=== PATIENT | female | born 1965 | race Caucasian/White ===

== ENCOUNTER → 2018-11-26 | Outpatient (CLI) | payer OTHER ==
[~2018-11-26] MED LIST: ACET500 PO; AMLO10 PO; AMLO5 PO; ASPI81CH PO; ATOR40TA PO; ATOR80 PO; Bactrim Ds Tab1 EACH PO; CILO100 PO; CILO50 PO; CLON.1; CLON.2 PO; CLOP75 PO; CYAN100 PO; Cilostazol50 MG PO; FERR325 PO; FLUO.05TO TOP; Hydrochloroth12.5 MG PO; IBUP600 PO; LEVSOD100 PO; LEVSOD137 PO; LEVSOD50 PO; LEVSOD75 PO; LISI20 PO; MECL25 PO; METO50 PO; METTREX2.5 PO; Omeprazole20 M1 PO; Prednisone20 MG PO; TRAM50 PO; VITAMIN D31000 UNIT PO
[2018-11-26 18:45] LABS: BASOPHILS ABSOLUTE AUTO 0.06 K/mm3 (0.00-0.23); BASOPHILS PERCENT AUTO 1 % (0-2); EOSINOPHILS ABSOLUTE AUTO 0.09 K/mm3 (0.00-0.68); EOSINOPHILS PERCENT AUTO 1 % (0-6); Hematocrit 37.8 % (33.0-51.0); Hemoglobin 11.9 g/dL (11.5-16.0); IMMATURE GRAN ABSOLUTE AUTO 0.02 K/mm3 (0.00-0.10); IMMATURE GRAN PERCENT AUTO 0 % (0-1); LYMPHOCYTES PERCENT AUTO 36 % (21-46); MONOCYTES ABSOLUTE AUTO 0.39 K/mm3 (0.16-1.47); MONOCYTES PERCENT AUTO 6 % (4-13); Mean Corpuscular HGB 33.1 pg (26.0-34.0); Mean Corpuscular HGB Conc 31.5 g/dL (31.5-36.5); Mean Corpuscular Volume 105 fL (80-100); Mean Platelet Volume 10.3 fL (9.1-12.4); NEUTROPHILS ABSOLUTE AUTO 3.97 K/mm3 (1.96-9.15); NEUTROPHILS PERCENT AUTO 56 % (41-73); Platelet Count 255 K/mm3 (150-400); RDW Coefficient Variation 13.8 % (11.7-14.2); RDW Standard Deviation 52.3 fL (35.1-46.3); Red Blood Cell Count 3.59 M/mm3 (3.80-5.20); White Blood Cell Count 7.03 K/mm3 (4.00-11.30)
== END ==
LOC: LAB 18:35 → LAB SHORT 18:35
PROVIDERS: Internal Medicine Rheumatology
DX: L40.50 Arthropathic psoriasis, unspecified (principal)
CPT/HCPCS: 84450; 85025; 85651

== ENCOUNTER 2019-05-25 07:35 | Day surgery (SDC) | payer OTHER ==
[~2019-05-25] VITALS: Ht 167.6 cm; Wt 53.0 kg
[~2019-05-25 07:35] MED LIST changes: +FOLI1 PO; +PROLIA60 MG/1 ML SQ; +VITAMIN D32000 UNI3 PO
--- NOTE | 2019-05-25 14:16 | NUR ---
pt left femoral artery access site started bleeding excessivily. per MD place FemStop to bleeding site. Femstop placed at 80mmHg or pressure, 10mmHg above dystolic bp. Bledding has stopped. pt also medicated with 0.5mg of xanax for anxiety. will continue to monitor.
--- NOTE | 2019-05-25 14:40 | NUR ---
10mmHg OF PRESSURE REMOVED FROM FEMSTOP. PRESSURE CURRENTLY AT 60mmHg. NO BLEEDING OR OOZING AT THIS TIME. PT STATES SHE IS VERY ANXIOUS AND IS INSITING THAT FEMSTOP BE REMOVED COMPLETELY. PT EDUCATED ON IMPORTANCE OF CONTROLLING THE BLEEDING OF THE ARTERY AND HOW THE FEMSTOP IS HELPING. VSS. WILL CONTINUE TO MONITOR SITE AND PTS ANXIETY LEVEL. SISTER, SANDIE, AT BEDSIDE.
--- NOTE | 2019-05-25 16:12 | NUR ---
Pt apears to be resting at this time. Right grion and left foot sites remain stable at this time.
--- NOTE | 2019-05-25 17:49 | NUR ---
DISCHARGE PT AMBULATES TO RESTROOM WITH ONE PERSON ASSIST. NO BLEEDING OR OOZING NOTED. PT DENIES ANY PAIN. VSS. SITE COVERED WITH TEGADERM. NO ADDITIONAL BLEEDING, OOZING OR HEMATOMA NOTED. IV DCD WITH CATH IN TACT. PT AND SISTER STATES UNDERSTANDING OF SITE CARE INSTRUCTIONS AND DISCHARGE INSTRUCTIONS. PT AND SISTER DENY ANY QUESTIONS OR CONCERNS UPON DISCHARGE. PT TO FRONT VIA WHEELCHAIR.
[2019-05-31] MEDS ORDERED: HYDCHL25 PO (15:19)
[2019-05-31] MEDS ORDERED: PROLIA60 MG/1 ML SC (15:20)
[2019-05-31] MEDS ORDERED: Vitamin D2000 UNIT PO (15:20)
[2019-05-31] MEDS ORDERED: SLOW FE142 MG PO (15:20)
[2019-05-31] MEDS ORDERED: OMEPRAZOLE20 MG PO (15:21)
[2019-05-31] MEDS ORDERED: CLOP75 PO (15:21)
[2019-05-31] MEDS ORDERED: Vitamin B-121000 MCG PO (15:21)
[2019-05-31] MEDS ORDERED: ATOR80 PO (15:21)
[2019-05-31] MEDS ORDERED: Catapres0.2 MG PO (15:21)
[2019-05-31] MEDS ORDERED: METTREX2.5 PO (15:22)
[2019-05-31] MEDS ORDERED: Aspir 8181 MG PO (15:22)
[2019-05-31] MEDS ORDERED: ACET500 PO (15:22)
[2019-05-31] MEDS ORDERED: LEVSOD137 PO (15:23)
[2019-05-31] MEDS ORDERED: FOLI1 PO (15:23)
[2019-06-01] MEDS ORDERED: POTA10T (09:00)
== END 2019-05-25 17:40 | disposition home or self-care (01) ==
LOC: MHTC 07:35
DX: I70.213 Atherosclerosis of native arteries of extremities with intermittent claudication, bilateral legs (principal); Z88.5 Allergy status to narcotic agent
CPT/HCPCS: 37221; 37222; 37223; 37224; 75625; 75716; 75774; 76937; 85347; 99152; 99153; C1725; C1769; C1876; C1887; C1894; C2623; J1644; J2060; J2250; J2997; J3010; J7030; Q9967

== ENCOUNTER 2019-06-18 02:08 | Day surgery (SDC) | payer OTHER ==
[~2019-06-18 02:08] MED LIST changes: +Aspir 8181 MG PO; +Catapres0.2 MG PO; +HYDCHL25 PO; +OMEPRAZOLE20 MG PO; +POTA10T; +PROLIA60 MG/1 ML SC; +SLOW FE142 MG PO; +Vitamin B-121000 MCG PO; +Vitamin D2000 UNIT PO
--- NOTE | 2019-06-18 15:09 | NUR ---
LS CLEAR BUT DIM IN RT BASES
[2019-06-18] MEDS ORDERED: ARTHRITIS PAIN650 MG PO (15:21)
== END 2019-06-18 17:16 | disposition home or self-care (01) ==
LOC: ATC 02:08
DX: I12.9 Hypertensive chronic kidney disease with stage 1 through stage 4 chronic kidney disease, or unspecified chronic kidney disease (principal); F17.200 Nicotine dependence, unspecified, uncomplicated; N18.2 Chronic kidney disease, stage 2 (mild); D63.1 Anemia in chronic kidney disease; N25.81 Secondary hyperparathyroidism of renal origin; M81.0 Age-related osteoporosis without current pathological fracture; E55.9 Vitamin D deficiency, unspecified; Z88.5 Allergy status to narcotic agent; Z79.82 Long term (current) use of aspirin; Z79.02 Long term (current) use of antithrombotics/antiplatelets; Z79.899 Other long term (current) drug therapy
CPT/HCPCS: 36415; 36430; 86850; 86900; 86901; 86923; J1940; J7050; P9016

== ENCOUNTER 2020-01-20 07:45 | Day surgery (SDC) | payer OTHER ==
[~2020-01-20] VITALS: Ht 167.6 cm; Wt 53.0 kg
[~2020-01-20 07:45] MED LIST changes: +ARTHRITIS PAIN650 MG PO
== END 2020-01-20 22:46 | disposition home or self-care (01) ==
LOC: MHTC 07:45
DX: I70.213 Atherosclerosis of native arteries of extremities with intermittent claudication, bilateral legs (principal); Z88.5 Allergy status to narcotic agent
CPT/HCPCS: 36200; 37221; 37224; 75716; 76937; 85347; 99152; 99153; C1725; C1769; C1773; C1874; C1887; C1894; J1200; J1644; J2060; J2250; J3010; J7030; J7040; J7050; Q9967

== ENCOUNTER 2020-03-16 09:45 | Day surgery (SDC) | payer OTHER ==
[~2020-03-16] VITALS: Ht 167.6 cm; Wt 52.0 kg
[~2020-03-16 09:45] MED LIST changes: +B-121000 MC7 PO; +BIOTIN1 MG PO; +ONE DAILY MUL400 MCG PO
--- NOTE | 2020-03-16 13:22 | NUR ---
PT BROUGHT BACK TO RECOVERY ROOM, LAYING IN SUPINE POSITION. RIGHT GROIN SITE APPEARS TO BE SOFT NON TENDER WITH NO ACTIVE BLEEDING, OOZING, OR PAIN NOTED. PT REPORTS FEELING PAIN IN LEFT ANKLE REGION 8/10. UNABLE TO FIND DOPPLER PULSES AT THIS TIME ON DP/PT SITES. PT APPEARS DROWSY, RESPONDS TO VERBAL STIMULI, SNORING, WAKES UP TEARFUL. FAMILY PRESENT AT BEDSIDE. WILL CONTINUE TO MONITOR.
--- NOTE | 2020-03-16 14:20 | NUR ---
RIGHT GROIN SITE WITH OOZING NOTED UNDER CLEAR TEGADERM, MANUAL PRESSURE HOLD X20 MINS, MELLY PAD PLACED OVER INCISION SITE. PT REPORTS DECREASED PAIN TO LEFT LEG. VSS.
--- NOTE | 2020-03-16 15:16 | NUR ---
HOB RAISED 30 DEGREES, RIGHT GROIN SITE SOFT NON TENDER WITH NO OOZING NOTED. MELLY PAD STILL INTACT, FAMILY PRESENT AT BEDSIDE. PT TOLERATES PO FLUIDS/FOOD WITH NO DIFFICULTIES.
--- NOTE | 2020-03-16 15:27 | NUR ---
HOB RAISED TO 45 DEGREES, PT EATING OFF OF FOOD TRAY, REPORTS LEFT FOOT FEELING "NUMB" RIGHT GROIN SITE SOFT WITH NO ACTIVE BLEEDING, OOZING, OR PAIN. WILL CONTINUE TO MONITOR.
--- NOTE | 2020-03-16 15:48 | NUR ---
PT PREVIOUSLY UP OUT OF BED, AMBULATES WITH SLOW STEADY GAIT TO RESTROOM, UNMEASURED VOID. PT RIGHT GROIN SITE REMAINS SOFT NON TENDER WITH NO BLEEDING OR OOZING NOTED. FAMILY PRESENT TO HELP ASSIST HER WITH GETTING DRESSED.
--- NOTE | 2020-03-16 16:02 | NUR ---
PT VERBALIZED UNDERSTANDING OF D/C INSTRUCTIONS. IV REMOVED FROM RAC WITH CATHETER INTACT, PRESSURE DRESSING APPLIED. RIGHT GROIN SITE APPEARS SOFT NON TENDER WITH NO BLEEDING, DRESSING C/D/I. PT PROVIDED WITH DISCHARGE PAPERWORK IN FOLDER TO GO HOME WITH. ASSISTED INTO W/C AND TRANSPORTED OUT TO PRIVATE VEHICLE. NO DISTRESS NOTED AT TIME OF DISCHARGE. ENCOURAGED TO FOLLOW UP WITH PROVIDER NEEDED.
== END 2020-03-16 16:12 | disposition home or self-care (01) ==
LOC: MHTC 09:45
DX: I70.213 Atherosclerosis of native arteries of extremities with intermittent claudication, bilateral legs (principal); J44.9 Chronic obstructive pulmonary disease, unspecified; I10 Essential (primary) hypertension; F17.210 Nicotine dependence, cigarettes, uncomplicated; Z88.5 Allergy status to narcotic agent; Z79.02 Long term (current) use of antithrombotics/antiplatelets; Z79.82 Long term (current) use of aspirin
CPT/HCPCS: 37227; 37230; 37232; 37252; 75625; 75716; 75774; 85347; 99152; 99153; C1714; C1725; C1760; C1769; C1874; C1887; C1894; C2623; J1200; J1644; J2060; J2250; J3010; J7030; J7050; Q9967

== ENCOUNTER 2020-07-12 06:58 | Day surgery (SDC) | payer OTHER ==
[~2020-07-12] VITALS: Ht 167.6 cm; Wt 51.4 kg
[~2020-07-12 06:58] MED LIST changes: +LEVOTHYROXINE125 MC1 PO
--- NOTE | 2020-07-12 08:02 | NUR ---
07/12/20 0802 Avis Carroll History, Chart, Medications and Allergies reviewed before start of procedure. Patient confirms NPO status and agrees with scheduled surgery. PATIENT DETERMINED TO BE ASA APPROPRIATE FOR PROPOFOL SEDATION PRIOR TO START OF PROCEDURE BY . 3-LEAD EKG REVIEWED WITH PHYSICIAN PRIOR TO START OF PROCEDURE. MONITOR INTACT WITH CONTINUOUS PULSE OXIMETRY AND INTERMITTENT BP.
--- NOTE | 2020-07-12 09:19 | NUR ---
Patient up to Ambulate independently. Gait steady. Discharge instructions reviewed with patient. Patient verbalizes understanding. Copy given to patient to take home. Discharged via wheelchair to private car for ride home.
== END 2020-07-12 22:37 | disposition home or self-care (01) ==
LOC: ORSCMMR 06:58 → ORD 08:00 → ORSCMMR 08:00
PROVIDERS: Internal Medicine Gastroenterology
PROC: 0DBN8ZX Excision of Sigmoid Colon, Via Natural or Artificial Opening Endoscopic, Diagnostic (ICD-10-PCS; principal; 2020-07-12 08:00)
PROC: 0DB98ZX Excision of Duodenum, Via Natural or Artificial Opening Endoscopic, Diagnostic (ICD-10-PCS; principal; 2020-07-12 08:00)
PROC: 0DB78ZX Excision of Stomach, Pylorus, Via Natural or Artificial Opening Endoscopic, Diagnostic (ICD-10-PCS; principal; 2020-07-12 08:00)
DX: K22.70 Barrett's esophagus without dysplasia (principal); D50.9 Iron deficiency anemia, unspecified; K29.80 Duodenitis without bleeding; K21.9 Gastro-esophageal reflux disease without esophagitis; D12.5 Benign neoplasm of sigmoid colon; K64.8 Other hemorrhoids; R19.5 Other fecal abnormalities; E03.9 Hypothyroidism, unspecified; Z79.899 Other long term (current) drug therapy; Z79.01 Long term (current) use of anticoagulants
CPT/HCPCS: 88305; 88341; 88342; A9270; J2250; J2704; J3010; J7120

== ENCOUNTER → 2021-04-03 | Outpatient (CLI) | payer OTHER ==
[2021-04-03 13:44] LABS: BASOPHILS ABSOLUTE AUTO 0.11 K/mm3 (0.00-0.23); BASOPHILS PERCENT AUTO 2 % (0-2); EOSINOPHILS ABSOLUTE AUTO 0.16 K/mm3 (0.00-0.68); EOSINOPHILS PERCENT AUTO 3 % (0-6); Hematocrit 23.1 % (33.0-51.0); Hemoglobin 6.4 g/dL (11.5-16.0); IMMATURE GRAN ABSOLUTE AUTO 0.02 K/mm3 (0.00-0.10); IMMATURE GRAN PERCENT AUTO 0 % (0-1); LYMPHOCYTES ABSOLUTE AUTO 1.28 K/mm3 (0.84-5.20); LYMPHOCYTES PERCENT AUTO 25 % (21-46); MONOCYTES ABSOLUTE AUTO 0.35 K/mm3 (0.16-1.47); MONOCYTES PERCENT AUTO 7 % (4-13); Mean Corpuscular HGB 20.9 pg (26.0-34.0); Mean Corpuscular HGB Conc 27.7 g/dL (31.5-36.5); Mean Corpuscular Volume 76 fL (80-100); Mean Platelet Volume 10.6 fL (9.1-12.4); NEUTROPHILS PERCENT AUTO 63 % (41-73); Platelet Count 226 K/mm3 (150-400); RDW Coefficient Variation 19.2 % (11.7-14.2); RDW Standard Deviation 52.1 fL (35.1-46.3); Red Blood Cell Count 3.06 M/mm3 (3.80-5.20); White Blood Cell Count 5.22 K/mm3 (4.00-11.30)
[2021-04-03 14:27] LABS: Alanine Aminotransfer (ALT/SGP 22 U/L (12-78); Albumin, Blood 3.7 g/dL (3.4-5.0); Alk Phos 56 U/L (50-136); Anion Gap 6 mmol/L (6-16); Aspartate Aminotrans (AST/SGOT 20 U/L (12-37); Bilirubin, Total 0.2 mg/dL (0.1-1.0); Blood Urea Nitrogen 14 mg/dL (8-24); Bun/Creatinine Ratio 14.7 (12.0-20.0); CHOL/HDL RATIO 2.6; CO2, Blood 24 mmol/L (21-32); Calcium, Blood 9.2 mg/dL (8.5-10.1); Chloride, Blood 106 mmol/L (98-108); Cholesterol 168 mg/dL (50-200); Creatinine, Blood 0.95 mg/dL (0.40-1.00); Globulin, Blood 3.8 g/dL (2.2-4.0); Glomerular Filtration Rate >60 (60-); Glucose, Blood 87 mg/dL (70-99); HDL Cholesterol 65 mg/dL (>39); LDL/HDL RATIO 1.4; Low Density Lipoprotein Chol 90 mg/dL (0-110); Potassium, Blood 3.9 mmol/L (3.5-5.5); Sodium, Blood 136 mmol/L (136-145); Total Protein, Blood 7.5 g/dL (6.4-8.2); Triglycerides 67 mg/dL (30-160); Very Low Density Lipoprot Chol 13 mg/dL (6-32)
== END ==
LOC: LAB SHORT 09:00 → LAB 09:00
PROVIDERS: Nurse Practitioner
DX: E03.9 Hypothyroidism, unspecified (principal); E78.5 Hyperlipidemia, unspecified; I10 Essential (primary) hypertension
CPT/HCPCS: 80053; 80061; 84443; 85025

== ENCOUNTER 2021-05-25 04:56 | Day surgery (SDC) | payer OTHER ==
[2021-05-25] MEDS ORDERED: PANTOPRAZOLE SO40 M2 PO (08:57)
[2021-05-25] MEDS ORDERED: ATOR40TA PO (08:58)
== END 2021-05-25 10:38 | disposition home or self-care (01) ==
LOC: ATC 04:56
DX: I12.9 Hypertensive chronic kidney disease with stage 1 through stage 4 chronic kidney disease, or unspecified chronic kidney disease (principal); N18.2 Chronic kidney disease, stage 2 (mild); D63.1 Anemia in chronic kidney disease; F17.210 Nicotine dependence, cigarettes, uncomplicated; N25.81 Secondary hyperparathyroidism of renal origin; K21.9 Gastro-esophageal reflux disease without esophagitis; Z88.5 Allergy status to narcotic agent
CPT/HCPCS: 86850; 86900; 86901; 86923; J1940; J7050; P9016

== ENCOUNTER → 2022-04-01 | Outpatient (CLI) | payer OTHER ==
[~2022-04-01] MED LIST changes: +PANTOPRAZOLE SO40 M2 PO
[2022-04-01 11:45] LABS: Percent Saturation 4.2 % (15.0-50.0)
== END | disposition home or self-care (01) ==
LOC: LAB 08:00 → LAB SHORT 11:14
PROVIDERS: Internal Medicine Hematology & Oncology
DX: D50.0 Iron deficiency anemia secondary to blood loss (chronic) (principal)
CPT/HCPCS: 82728; 83540; 83550

== ENCOUNTER → 2022-08-26 | Outpatient (CLI) | payer OTHER ==
[2022-08-26 16:24] LABS: Percent Saturation 12.4 % (15.0-50.0)
== END | disposition home or self-care (01) ==
LOC: LAB 09:11 → LAB SHORT 09:11
PROVIDERS: Internal Medicine Hematology & Oncology
DX: D51.8 Other vitamin B12 deficiency anemias (principal)
CPT/HCPCS: 82607; 82728; 82746; 83540; 83550

== ENCOUNTER 2023-12-23 13:42 | Inpatient (IN) | payer BC ==
[~2023-12-23] VITALS: Ht 167.6 cm; Wt 52.8 kg
[2023-12-23] VITALS (13 sets, daily range): BP systolic 103–141; BP diastolic 60–87
[~2023-12-23 13:42] MED LIST changes: +EUTHYROX125 MCG PO; -LEVOTHYROXINE125 MC1 PO; +SLOW FE137 MG PO; -SLOW FE142 MG PO
[2023-12-23 14:10] LABS: BASOPHILS ABSOLUTE AUTO 0.12 K/mm3 (0.00-0.23); BASOPHILS PERCENT AUTO 2 % (0-2); EOSINOPHILS ABSOLUTE AUTO 0.15 K/mm3 (0.00-0.68); EOSINOPHILS PERCENT AUTO 2 % (0-6); Hematocrit 20.6 % (33.0-51.0); IMMATURE GRAN ABSOLUTE AUTO 0.02 K/mm3 (0.00-0.10); IMMATURE GRAN PERCENT AUTO 0 % (0-1); LYMPHOCYTES PERCENT AUTO 25 % (21-46); MONOCYTES ABSOLUTE AUTO 0.51 K/mm3 (0.16-1.47); MONOCYTES PERCENT AUTO 8 % (4-13); Mean Corpuscular HGB 20.4 pg (26.0-34.0); Mean Corpuscular HGB Conc 28.6 g/dL (31.5-36.5); Mean Corpuscular Volume 71 fL (80-100); Mean Platelet Volume 10.7 fL (9.1-12.4); NEUTROPHILS ABSOLUTE AUTO 4.29 K/mm3 (1.96-9.15); NEUTROPHILS PERCENT AUTO 63 % (41-73); NRBC ABSOLUTE 0.03 K/mm3 (0.00-0.02); NRBC Auto 0.4 /100 WBC (0.0-0.2); Platelet Count 257 K/mm3 (150-400); RDW Coefficient Variation 18.7 % (11.7-14.2); RDW Standard Deviation 47.8 fL (35.1-46.3); Red Blood Cell Count 2.89 M/mm3 (3.80-5.20); White Blood Cell Count 6.79 K/mm3 (4.00-11.30)
[2023-12-23 14:21] LABS: Hemoglobin 5.9 g/dL (11.5-16.0)
[2023-12-23 14:28] LABS: Albumin, Blood 3.9 g/dL (3.4-5.0); Bilirubin, Total 0.4 mg/dL (0.1-1.0); Bun/Creatinine Ratio 19.4 (12.0-20.0); Creatinine, Blood 0.77 mg/dL (0.40-1.00); Globulin, Blood 3.8 g/dL (2.2-4.0); Potassium, Blood 4.1 mmol/L (3.5-5.5); Total Protein, Blood 7.7 g/dL (6.4-8.2)
[2023-12-23] MEDS ORDERED: Ondansetron HCl 2 MG / ML 2ML Vial IV ONE (14:55)
[2023-12-23] MEDS ORDERED: FentaNYL Citrate 50 MCG/ML 2 ML Injection IV ONE (14:55)
[2023-12-23] MEDS ORDERED: Acetaminophen 325 MG TABLET PO PRN (16:05)
[2023-12-23] MEDS ORDERED: NS 500 ML IV SCH (17:55)
[2023-12-23] MEDS ORDERED: CloNIDine HCl 0.2 MG Tab PO SCH (21:00)
[2023-12-23] MEDS ORDERED: Atorvastatin 40 MG Tab PO SCH (21:00)
--- NOTE | 2023-12-23 22:10 | NUR ---
1ST UNIT PRBC'S COMPLETED W/O ADVERSE EVENT. VSS AND SHE DENIES CP AND ALL OTHER S/S CARDIAC DISTRESS. LAB RICKI REPEAT TROPONIN FOLLOWING TRANSFUSION THEN 2ND UNIT PRBC'S WAS VERIFIED AND COMMENCED AT 2205. WCTM CLOSELY FOR CHANGES.
[2023-12-23] MEDS ORDERED: Clopidogrel Bisulfate 75 MG Tab PO SCH (23:05)
--- NOTE | 2023-12-23 23:05 | NUR ---
CRITICAL TROPONIN 294: NOTIFIED. NEW ORDERS FOR: STAT EKG, COMMENCE PLAVIX TONIGHT AND REPEAT TROPONIN AFTER 2ND UNIT PRBC'S INFUSED. THERE'S NO CHANGE IN PT CONDITION AND SHE CONT'S TO REPORT INTERMITTENT DULL (3/10) R.RIB PAIN THAT RESOLVES SPONTANEOUSLY. NO ASSOCIATED CARDIAC SYMPTOMS, VSS. CELL TUBER HAND AWARE. WCTM.
--- NOTE | 2023-12-23 23:55 | NUR ---
PLAVIX RECEIVED AND EKG COMPLETED. 2ND UNIT PRBC'S CONT'S INFUSING AT THIS TIME.
[2023-12-24] VITALS (16 sets, daily range): BP systolic 106–149; BP diastolic 64–116
--- NOTE | 2023-12-24 01:45 | NUR ---
2ND UNIT PRBC'S COMPLETED W/O S/S DISTRESS OR ADVERSE EVENT. PLAN FOR REPEAT HGB/HCT AND TROPONIN AT 0300 PER MD INSTRUCTION. PT SLEEPING COMFORTABLY.
--- NOTE | 2023-12-24 04:00 | NUR ---
CRITICAL TROPONIN NOW UP TO 953 W/NO CHANGE IN PT CONDITION. SHE'S SLEEPING W/O S/S CARDIAC DISTRESS AT PRESENT. MADE AWARE W/REPEAT TROPONIN RX'D FOR 0630 (3 HRS FROM PRIOR DRAW). HGB/HCT IMPROVED AFTER 2 UNITS PRBC'S, NOW UP TO 7.8/25.1.
[2023-12-24 04:45] LABS: Creatinine, Blood 0.89 mg/dL (0.40-1.00); Potassium, Blood 4.2 mmol/L (3.5-5.5)
--- NOTE | 2023-12-24 05:15 | NUR ---
SUMMARY: PT A/OX4, CALLS APPROPRIATELY TO SPECIFY NEEDS AND IS PLEASANT AND COOPERATIVE W/CARE. SBA PROVIDED TO RESTROOM D/T SYNCOPE AND DIZZINESS PRIOR TO ADMIT W/AMBULATION THOUGH NONE NOTED T/O NOCTE. HGB/HCT WAS INITIALLY 5.9/20.6. 2 UNITS PRBC'S WERE RECEIVED W/O ADVERSE EVENT AND HGB/HCT NOW IMPROVED TO 7.8/25.1. PT C/O OF INTERMITTENT DULL CP THAT RESOLVES SPONTANEOUSLY AND HASN'T REQUIRED PRN MEDICATION. TROPONINS BEING TRENDED AND NOW CRITICAL (WAS 49, 76, 294 AND NOW 953). REPEAT TROPONIN SCHEDULED FOR 629. PLAVIX WAS RECEIVED PER EMAR AND REPEAT EKG WAS DONE W/RESULTS RELAYED TO . SHE REMAINS ON TELE IN NSR AT 70'S-80'S BP. SPO2 WNL ON RA AND NO DYSPNEA OR SOB. VSS/AFEBRILE, NO ACUTE CHANGES. WCTM AND REPORT TO DAY RN.
[2023-12-24] MEDS ORDERED: Pantoprazole Sodium 40 MG Tab PO SCH (06:00)
[2023-12-24] MEDS ORDERED: Levothyroxine Sodium 0.125 MG Tab PO SCH ×3 (06:00→09:00)
[2023-12-24 06:20] LABS: Calcium, Blood 8.6 mg/dL (8.5-10.1)
[2023-12-24 06:29] LABS: BASOPHILS ABSOLUTE AUTO 0.11 K/mm3 (0.00-0.23); BASOPHILS PERCENT AUTO 2 % (0-2); EOSINOPHILS PERCENT AUTO 5 % (0-6); Hematocrit 25.1 % (33.0-51.0); Hemoglobin 7.8 g/dL (11.5-16.0); IMMATURE GRAN ABSOLUTE AUTO 0.01 K/mm3 (0.00-0.10); IMMATURE GRAN PERCENT AUTO 0 % (0-1); LYMPHOCYTES PERCENT AUTO 22 % (21-46); MONOCYTES ABSOLUTE AUTO 0.44 K/mm3 (0.16-1.47); MONOCYTES PERCENT AUTO 8 % (4-13); Mean Corpuscular HGB 23.4 pg (26.0-34.0); Mean Corpuscular HGB Conc 31.1 g/dL (31.5-36.5); Mean Corpuscular Volume 75 fL (80-100); Mean Platelet Volume 10.4 fL (9.1-12.4); NEUTROPHILS ABSOLUTE AUTO 3.48 K/mm3 (1.96-9.15); NEUTROPHILS PERCENT AUTO 63 % (41-73); NRBC Auto 0.5 /100 WBC (0.0-0.2); Platelet Count 192 K/mm3 (150-400); RDW Standard Deviation 54.6 fL (35.1-46.3); Red Blood Cell Count 3.34 M/mm3 (3.80-5.20); White Blood Cell Count 5.54 K/mm3 (4.00-11.30)
[2023-12-24 06:30] LABS: NRBC ABSOLUTE 0.03 K/mm3 (0.00-0.02)
--- NOTE | 2023-12-24 07:37 | NUR ---
CALLED AND SPOKE WITH DR EAGLE D/T TELE CALLED THIS MORNING TO NOTIFY THAT PT HAD 4 EPISODES OF DROPPED QRS BETWEEN 9399-2202 ON 12/22 AND ONE EPISODE THIS MORNING AT 0712. NOTIFIED PHYSICIAN THAT PT HAD A EKG DONE LAST NIGHT AROUND MIDNIGHT AND THERE WERE NO CHANGE FROM THE ONE DONE YESTERDAY IN ED. ERNESTINA STATED THAT PT NEEDED TO BE NPO AND SHE WAS GOING TO PLACE SOME OTHER ORDERS IN.
[2023-12-24] MEDS ORDERED: Aspirin 81 MG TabEC PO SCH (09:00)
[2023-12-24] MEDS ORDERED: Clopidogrel Bisulfate 75 MG Tab PO SCH (09:00)
[2023-12-24] MEDS ORDERED: Nicotine 21 MG PATCH TOP SCH (09:40)
--- NOTE | 2023-12-24 11:16 | NUR ---
DR EAGLE DID OCCULT SAMPLE AT BEDSIDE RESULTS WERE NEGATIVE.
[2023-12-24] MEDS ORDERED: Caffeine Citrated 60 MG/3 ML Vial ONE (13:11)
[2023-12-24] MEDS ORDERED: Regadenoson 0.4 MG/5 ML SYRINGE ONE (13:11)
[2023-12-24] MEDS ORDERED: HyDROXyzine HCl 25 MG Tab PO PRN (14:15)
[2023-12-24 18:26] LABS: Hematocrit 40.1 % (33.0-51.0)
--- NOTE | 2023-12-24 18:45 | NUR ---
SHIFT SUMMARY PT CONT LEVEL OF CARE. PT IS SBA AND CALLS APPROPERATE. PT HAS CONSULTED WITH CARDIOLOGY THIS SHIFT. WHOM RECOMMEND THAT PT NOT HAVE A STRESS TEST DONE SO STRESS TEST WAS D/C. CARDIOLOGY DID RECOMMEND THAT PT HGB BE ABOVE 10. PT HAS RECEIVED 2 UNITS OF BLOOD THIS SHIFT AND LAST HGB WAS NOTED TO BE 13. PT HAS DENIED CHEST PAIN, SOB, DIZZINESS THIS SHIFT. PLAN IS FOR PT TO BE NPO AT MIDNIGHT AND IS TO HAVE AN ANGIOGRAM DONE TOMORROW.
[2023-12-24] MEDS ORDERED: Sucralfate 1 GM Tab PO SCH (21:00)
[2023-12-25] VITALS (11 sets, daily range): BP systolic 122–152; BP diastolic 83–106
--- NOTE | 2023-12-25 04:47 | NUR ---
SHIFT SUMMARY. PATIENT IS A&OX4. PATIENT UP IN ROOM INDEPENDENTLY. PATIENT HAVING ANXIETY TONIGHT-MEDICATED X1 THIS SHIFT PER EMAR. DR. BAILEY IN DURING BEDSIDE SHIFT REPORT. PATIENT REPORTS THAT ANGIOGRAM IS A PRIORITY OVER GENERAL SURGERY AND THAT IF CARDIOLOGY GIVES PATIENT THE CLEAR TO CONTINUE WITH ENDOSCOPE THEY MAY COMPLETE THAT AFTER ANGIOGRAM PENDING CARDIOLOGY. PATIENT RESTING OFF AND ON T/O NIGHT WITH RESPIRATIONS EQUAL AND UNLABORED. NO ACUTE CHANGES OR EVENTS NOTED THIS SHIFT. BED IS LOCKED IN THE LOWEST POSITION WITH CALL LIGHT IN REACH. CARE IS ONGOING.
[2023-12-25] MEDS ORDERED: Pantoprazole Sodium 40 MG Tab PO SCH (06:00)
[2023-12-25] MEDS ORDERED: Nicotine 21 MG PATCH TOP SCH (09:00)
[2023-12-25] MEDS ORDERED: AmLODIPine Besylate 5 MG Tab PO SCH (09:00)
[2023-12-25] MEDS ORDERED: NS 250 ML IV ONE (12:41)
[2023-12-25] MEDS ORDERED: NS 1,000 ML IV ONE ×2 (12:41→12:59)
[2023-12-25] MEDS ORDERED: Heparin Sodium 1000 Units/ML 10ML MDV ONE (12:41)
[2023-12-25] MEDS ORDERED: NiCARdipine HCL 1,000 MCG/5 ML SYR ONE (12:42)
[2023-12-25] MEDS ORDERED: Nitroglycerin 2 MG/20 ML BTL ONE (12:42)
[2023-12-25] MEDS ORDERED: FentaNYL Citrate 50 MCG/ML 2 ML Injection ONE (12:59)
[2023-12-25] MEDS ORDERED: Midazolam HCl 1MG / ML 2ML Vial ONE (12:59)
--- NOTE | 2023-12-25 13:03 | NUR ---
PT TRANSFERED TO ANGIO PROCEDURE. REPORT WAS GIVEN TO RECIEVING RN FOR ROOM PCU 3. ALL PERSONAL BELONGINGS WERE TAKEN TO ROOM. PRIOR TO TRANSFER PT HAS BEEN INDEPENDENT IN ROOM AND AOX4. PT HAD REPORTED HER CHEST PAIN AT A 2. PT WAS ABLE TO MAKE ALL NEEDS KNOWN AND USE CALL LIGHT APPROPRIATELY.
[2023-12-25] MEDS ORDERED: NS 1,000 ML IV SCH (13:40)
--- NOTE | 2023-12-25 16:46 | NUR ---
TRANSFER UPDATE REPORT RECIEVED FROM [facility] FLOOR RN AT 0913. PT ARRIVED FROM [facility] AT 1340 VIA HOSPITAL BED AND ON RA. TR BAND IN PLACE OF RIGHT WRIST, NO BLEEDING, HEMATOMA, OR TENDERNESS NOTED. PT EDUCATED ON RECOVERY PERIOD AND FREQUENT VITALS, PT VERBALIZED UNDERSTANDING. VSS.
--- NOTE | 2023-12-25 18:13 | NUR ---
SHIFT SUMMARY PT A/OX4 AND COOPERATIVE OF CARE SINCE ARRIVING TO PRU FROM LANDSCAPING SPECIALIST. PT ABLE TO EXPRESS NEEDS ADN CALLS APPROPIATE. PT INDEPENDENT IN ROOM. [facility]IT [facility] SITE C/D/I UPON ARRIVAL TO PCU. CORE OVEN TENDER ATTEMPTED TO RELEASE SOME PRESSURE FROM TR BAND AT ROUGHLY 1645, CORE OVEN TENDER REPORT SOME OOZING. PT INFORMED THAT THE RECOVERY MAY TAKE A LITTLE LONGER, PT AGREEABLE. PT BP'S TRENDING UP DURING RECOVERY PERIOD BUT STABLE. OTHER VSS SINCE ARRIVING TO UNIT.
--- NOTE | 2023-12-25 19:00 | NUR ---
ASSUMED CARE OF PT AT THIS TIME. PT RESTING IN CHAIR AT BEDSIDE AT THIS TIME. DENIES ANY COMPLAINTS.
[2023-12-26 04:21] LABS: Hematocrit 38.9 % (33.0-51.0); Hemoglobin 12.3 g/dL (11.5-16.0); Mean Corpuscular HGB 24.6 pg (26.0-34.0); Mean Corpuscular HGB Conc 31.6 g/dL (31.5-36.5); Mean Corpuscular Volume 78 fL (80-100); Mean Platelet Volume 10.2 fL (9.1-12.4); Platelet Count 244 K/mm3 (150-400); RDW Coefficient Variation 20.8 % (11.7-14.2); White Blood Cell Count 6.56 K/mm3 (4.00-11.30)
[2023-12-26 04:43] LABS: Anion Gap 14 mmol/L (3-11); Blood Urea Nitrogen 10 mg/dL (8-24); Bun/Creatinine Ratio 13.9 (12.0-20.0); CHOL/HDL RATIO 1.9; CO2, Blood 21 mmol/L (21-32); Calcium, Blood 8.7 mg/dL (8.5-10.1); Chloride, Blood 108 mmol/L (98-108); Cholesterol 107 mg/dL (50-200); Creatinine, Blood 0.72 mg/dL (0.40-1.00); Glomerular Filtration Rate 98 (60-); Glucose, Blood 85 mg/dL (70-99); HDL Cholesterol 57 mg/dL (>39); LDL/HDL RATIO 0.7; Low Density Lipoprotein Chol 38 mg/dL (0-110); Potassium, Blood 3.5 mmol/L (3.5-5.5); Sodium, Blood 139 mmol/L (136-145); Triglycerides 58 mg/dL (30-160); Very Low Density Lipoprot Chol 11 mg/dL (6-32)
--- NOTE | 2023-12-26 06:11 | NUR ---
SHIFT SUMMARY PT RESTED MOST OF THE NIGHT WITHOUT COMPLAINT. AMBULATES TO RESTROOM WITHOUT ASSISTANCE. VS WNL. BED IN LOW POSITION, CALL LIGHT WITHIN REACH. PT REMAINS A/O X4. NO SIGNIFICANT CHANGES TO REPORT. WILL CONTINUE TO MONITOR UNTIL REPORT TO AM RN.
[2023-12-26 07:31] VITALS: BP 123/85
[2023-12-26] MEDS ORDERED: Metoprolol Tartrate 25 MG Tab PO SCH (09:00)
[2023-12-26] MEDS ORDERED: AmLODIPine Besylate 5 MG Tab PO SCH (09:00)
[2023-12-26] MEDS ORDERED: AMLO10 PO (10:42)
[2023-12-26] MEDS ORDERED: NICO21TP TOP (10:43)
[2023-12-26] MEDS ORDERED: METO25 PO (10:43)
--- NOTE | 2023-12-26 11:13 | NUR ---
DISCHARGE PT DISCUSSED PLAN OF CARE AND FUTURE FOLLOW UPS WITH DR SANCHEZ AND DR EAGLE THIS MORNING. DISCHARGE INSTRUCTIONS AND FOLLOW UPS REVIEWED AGAIN WITH PT AT THIS TIME. PT VERBALIZED UNDERSTANDING OF ALL DISCHARGE INSTRUCTIONS AND MEDICATIONS. PT SIGNED DISCHARGE PAPERWORK. PT TAKEN OUT TO RIDE HOME AT 1110 VIA WHEELCHAIR. ALL PT BELONGINGS SENT WITH PT.
[2023-12-29 14:02] LABS: DOPAMINE 191 pmol/L (<=240); EPINEPHRINE 188 pmol/L (<=330); NOREPINEPHRINE 7687 pmol/L (1050-4800)
== END 2023-12-26 11:38 | disposition home or self-care (01) | DRG 663 ==
LOC: ER 13:42 → MEDS 13:44 → PCU 12-25 12:51
PROVIDERS: Internal Medicine Cardiovascular Disease; Physician Assistant; ADMIT Internal Medicine
PROC: 30233N1 Transfusion of Nonautologous Red Blood Cells into Peripheral Vein, Percutaneous Approach (ICD-10-PCS; principal; 2023-12-23)
PROC: B2111ZZ Fluoroscopy of Multiple Coronary Arteries using Low Osmolar Contrast (ICD-10-PCS; 2023-12-25)
DX: D50.9 Iron deficiency anemia, unspecified (principal); I21.A1 Myocardial infarction type 2; I25.10 Atherosclerotic heart disease of native coronary artery without angina pectoris; I73.9 Peripheral vascular disease, unspecified; I65.29 Occlusion and stenosis of unspecified carotid artery; I10 Essential (primary) hypertension; E78.5 Hyperlipidemia, unspecified; K21.9 Gastro-esophageal reflux disease without esophagitis; F41.9 Anxiety disorder, unspecified; K22.70 Barrett's esophagus without dysplasia; L40.9 Psoriasis, unspecified; E03.9 Hypothyroidism, unspecified; Z88.5 Allergy status to narcotic agent; Z88.8 Allergy status to other drugs, medicaments and biological substances; Z95.820 Peripheral vascular angioplasty status with implants and grafts; Z79.82 Long term (current) use of aspirin; Z79.02 Long term (current) use of antithrombotics/antiplatelets; Z79.890 Hormone replacement therapy; Z71.6 Tobacco abuse counseling; Z72.0 Tobacco use
CPT/HCPCS: 36415; 36430; 71046; 76937; 80048; 80053; 80061; 82384; 82607; 82728; 82746; 83540; 83550; 84484; 85014; 85018; 85025; 85027; 86850; 86900; 86901; 86923; 93005; 93010; 93306; 93454; 93880; 96374; 96375; 99152; 99153; 99285-25; A9270; C1769; C1894; G0378; J0706; J1644; J2250; J2405; J2785; J3010; J7030; J7050; P9016; Q9967

== ENCOUNTER 2024-05-29 15:21 | Emergency (ER) | payer BC ==
[~2024-05-29] VITALS: Ht 167.6 cm; Wt 52.6 kg
[~2024-05-29 15:21] MED LIST changes: +METO25 PO; +NICO21TP TOP
[2024-05-29 16:06] LABS: BASOPHILS ABSOLUTE AUTO 0.09 K/mm3 (0.00-0.23); BASOPHILS PERCENT AUTO 1 % (0-2); EOSINOPHILS ABSOLUTE AUTO 0.63 K/mm3 (0.00-0.68); EOSINOPHILS PERCENT AUTO 10 % (0-6); Hematocrit 19.9 % (33.0-51.0); IMMATURE GRAN ABSOLUTE AUTO 0.03 K/mm3 (0.00-0.10); IMMATURE GRAN PERCENT AUTO 1 % (0-1); LYMPHOCYTES ABSOLUTE AUTO 1.44 K/mm3 (0.84-5.20); LYMPHOCYTES PERCENT AUTO 23 % (21-46); MONOCYTES ABSOLUTE AUTO 0.48 K/mm3 (0.16-1.47); MONOCYTES PERCENT AUTO 8 % (4-13); Mean Corpuscular HGB 23.6 pg (26.0-34.0); Mean Corpuscular HGB Conc 28.6 g/dL (31.5-36.5); Mean Corpuscular Volume 82 fL (80-100); Mean Platelet Volume 10.7 fL (9.1-12.4); NEUTROPHILS ABSOLUTE AUTO 3.55 K/mm3 (1.96-9.15); NEUTROPHILS PERCENT AUTO 57 % (41-73); NRBC ABSOLUTE 0.03 K/mm3 (0.00-0.02); NRBC Auto 0.5 /100 WBC (0.0-0.2); Platelet Count 234 K/mm3 (150-400); RDW Coefficient Variation 20.7 % (11.7-14.2); RDW Standard Deviation 61.6 fL (35.1-46.3); Red Blood Cell Count 2.42 M/mm3 (3.80-5.20); White Blood Cell Count 6.22 K/mm3 (4.00-11.30)
[2024-05-29 16:14] LABS: Hemoglobin 5.7 g/dL (11.5-16.0)
[2024-05-29 16:22] LABS: Albumin, Blood 3.9 g/dL (3.4-5.0); Albumin/Globulin Ratio 1.1 (0.8-1.8); Bilirubin, Total 0.2 mg/dL (0.1-1.0); Bun/Creatinine Ratio 23.4 (12.0-20.0); Calcium, Blood 9.3 mg/dL (8.5-10.1); Creatinine, Blood 0.73 mg/dL (0.40-1.00); Globulin, Blood 3.6 g/dL (2.2-4.0); Potassium, Blood 3.5 mmol/L (3.5-5.5); Total Protein, Blood 7.5 g/dL (6.4-8.2)
[2024-05-29 16:37] LABS: Magnesium, Blood 1.8 mg/dL (1.6-2.4)
[2024-05-29 16:39] LABS: Thyroid Stimulating Hormone 0.425 uIU/mL (0.360-4.800)
[2024-05-29 16:49] LABS: Source, Urine Clean Catch
[2024-05-29 16:56] LABS: Appearance, Urine Hazy (Clear); Bilirubin, Urine Neg (Neg); Blood, Urine 1+ (Neg); Color, Urine Yellow (P-Yellow); Glucose Qualitative, Urine Neg (Neg); Ketones, Urine Neg (Neg); Leukocyte Esterase, Urine 1+ (Neg); Nitrite, Urine Pos (Neg); Protein, Urine Neg (Neg); Specific Gravity, Urine 1.015 (1.003-1.022); Urobilinogen, Urine NORM (Normal)
[2024-05-29 17:17] LABS: Red Blood Cells, Urine 0-2 /hpf (0-2)
[2024-05-29 17:18] LABS: Bacteria Many /hpf; Squamous Epithelial Cells Many /hpf (Few); Transitional Epithelial Cells Rare /hpf (0-Rare)
[2024-05-29] MEDS ORDERED: CefTRIAXone Sodium 1,000 MG in NS 50 ML IV ONE (17:30)
[2024-05-29] MEDS ORDERED: NS 1,000 ML IV ONE (20:14)
[2024-05-29 22:15] VITALS: BP 134/83
== END 2024-05-29 22:55 | disposition home or self-care (01) ==
LOC: ER 15:21
PROVIDERS: Physician Assistant; Student in an Organized Health Care Education/Training Program
DX: D64.9 Anemia, unspecified (principal); R79.89 Other specified abnormal findings of blood chemistry; Z88.5 Allergy status to narcotic agent; Z79.899 Other long term (current) drug therapy; Z79.82 Long term (current) use of aspirin; I10 Essential (primary) hypertension; E78.5 Hyperlipidemia, unspecified; E03.9 Hypothyroidism, unspecified
CPT/HCPCS: 36430; 70450; 71046; 80053; 81001; 83735; 84443; 84484; 85025; 86850; 86900; 86901; 86923; 93005; 93010; 96365; 99285-25; J0696; J7030; P9016

== ENCOUNTER 2024-06-11 15:29 | Observation (INO) | payer BC ==
[~2024-06-11] VITALS: Ht 167.6 cm; Wt 52.0 kg
[2024-06-11 15:58] LABS: BASOPHILS ABSOLUTE AUTO 0.05 K/mm3 (0.00-0.23); BASOPHILS PERCENT AUTO 1 % (0-2); EOSINOPHILS ABSOLUTE AUTO 0.45 K/mm3 (0.00-0.68); EOSINOPHILS PERCENT AUTO 7 % (0-6); IMMATURE GRAN ABSOLUTE AUTO 0.03 K/mm3 (0.00-0.10); IMMATURE GRAN PERCENT AUTO 0 % (0-1); LYMPHOCYTES ABSOLUTE AUTO 0.96 K/mm3 (0.84-5.20); LYMPHOCYTES PERCENT AUTO 14 % (21-46); MONOCYTES ABSOLUTE AUTO 0.39 K/mm3 (0.16-1.47); MONOCYTES PERCENT AUTO 6 % (4-13); Mean Corpuscular HGB 23.6 pg (26.0-34.0); Mean Corpuscular Volume 82 fL (80-100); Mean Platelet Volume 11.2 fL (9.1-12.4); NEUTROPHILS ABSOLUTE AUTO 4.96 K/mm3 (1.96-9.15); NEUTROPHILS PERCENT AUTO 73 % (41-73); NRBC ABSOLUTE 0.02 K/mm3 (0.00-0.02); NRBC Auto 0.3 /100 WBC (0.0-0.2); Platelet Count 315 K/mm3 (150-400); RDW Coefficient Variation 21.1 % (11.7-14.2); RDW Standard Deviation 61.6 fL (35.1-46.3); RETICULOCYTE ABSOLUTE 0.1093 M/mm3 (0.0200-0.1100); RETICULOCYTE COUNT PERCENT 6.14 % (0.50-2.50); Red Blood Cell Count 1.78 M/mm3 (3.80-5.20); White Blood Cell Count 6.84 K/mm3 (4.00-11.30)
[2024-06-11 16:00] LABS: Hematocrit 14.5 % (33.0-51.0); Hemoglobin 4.2 g/dL (11.5-16.0)
[2024-06-11 16:31] LABS: Albumin, Blood 3.3 g/dL (3.4-5.0); Albumin/Globulin Ratio 1.1 (0.8-1.8); Bilirubin, Total 0.3 mg/dL (0.1-1.0); Bun/Creatinine Ratio 28.9 (12.0-20.0); Calcium, Blood 8.5 mg/dL (8.5-10.1); Creatinine, Blood 0.8 mg/dL (0.40-1.00); Potassium, Blood 3.8 mmol/L (3.5-5.5); Total Protein, Blood 6.3 g/dL (6.4-8.2)
[2024-06-11 16:46] LABS: Percent Saturation 4.4 % (15.0-50.0)
[2024-06-11] MEDS ORDERED: NS 1,000 ML IV ONE ×2 (17:48→19:37)
[2024-06-11] MEDS ORDERED: Ondansetron HCl 2 MG / ML 2ML Vial IV PRN (18:35)
[2024-06-11] MEDS ORDERED: NS 1,000 ML IV SCH (18:35)
[2024-06-11 20:35] VITALS: BP 121/85
[2024-06-11] MEDS ORDERED: FERSU300 PO (20:54)
[2024-06-11] MEDS ORDERED: C COMPLEX1000 M1 PO (20:55)
[2024-06-11] MEDS ORDERED: ELIQUIS2.5 MG (20:58)
[2024-06-11] MEDS ORDERED: FLU VACC TS2024-25(6MOS UP)/PF 45 MCG/0.5 ML SYRINGE IM ONE (21:00)
[2024-06-11 21:37] VITALS: BP 131/85
[2024-06-11] MEDS ORDERED: Nicotine 21 MG PATCH TOP SCH (22:00)
[2024-06-11] MEDS ORDERED: NS 500 ML IV SCH (22:10)
--- NOTE | 2024-06-11 22:14 | NUR ---
TRANSFER NOTE THIS RN RECEIVED REPORT FROM YUDY ALVAREZ IN THE ED. PT TRANSFERRED TO PCU 15. PT ABLE TO TRANSFER WITH SBA FROM [facility] TO BED. PT WITH STEADY GAIT BUT STATES PROBLEMS WITH VISION AND DIZZINESS. STATING THAT DIZZINESS/VISION PROBLEMS HAVE BEEN IMPROVING SINCE BLOOD TRANSFUSIONS. REPORTS TUNNEL VISION AND "BLURRINESS" SINCE HER [place] IN DECEMBER 2023. PT A&O X4. KNOWS MED REC AND HX. STATES SHE IS FOLLOWING WITH MD GUSMAN WITH PLANS FOR OUTPATIENT SCOPE AND IS SCHEDULED IN JULY FOR SURGERY FOR CAROTID ARTERIES. SR ON MONITOR. BP STABLE. ON RA WITH SPO2 >92%. CLEAR LS T/O. AFEBRILE. PT DENIES DARK/BLOODY STOOLS OR N/V. VERBALIZED UNDERSTANDING THAT WE NEED A STOOL SAMPLE. FINISHING INFUSING 2ND UNIT OF PRBC'S, WILL INFUSE 3RD UNIT WHEN COMPLETE PER ORDER. BED IN LOWEST POSITION AND CALL LIGHT WITHIN REACH
[2024-06-11 22:46] VITALS: BP 137/69
[2024-06-11 23:08] VITALS: BP 132/66
[2024-06-12 00:07] VITALS: BP 127/70
[2024-06-12 01:06] VITALS: BP 134/65
[2024-06-12 02:22] LABS: Hematocrit 25.8 % (33.0-51.0); Hemoglobin 8.5 g/dL (11.5-16.0); Mean Corpuscular HGB Conc 32.9 g/dL (31.5-36.5); Mean Corpuscular Volume 82 fL (80-100); Mean Platelet Volume 9.9 fL (9.1-12.4); NRBC ABSOLUTE 0.03 K/mm3 (0.00-0.02); NRBC Auto 0.6 /100 WBC (0.0-0.2); Platelet Count 237 K/mm3 (150-400); RDW Coefficient Variation 16.5 % (11.7-14.2); RDW Standard Deviation 49.4 fL (35.1-46.3); Red Blood Cell Count 3.15 M/mm3 (3.80-5.20); White Blood Cell Count 5.13 K/mm3 (4.00-11.30)
[2024-06-12 03:43] VITALS: BP 129/72
--- NOTE | 2024-06-12 04:20 | NUR ---
SHIFT SUMMARY SEE PREVIOUS NOTE. NO ACUTE CHANGES SINCE ARRIVAL TO UNIT. PT FINISHED 3RD UNIT OF PRBC'S. HGB THIS AM 8.5. PT REPORTS DIZZINES AND VISION IMPROVED. VSS. PT ABLE TO REPOSITION SELF IN BED. SCD'S ON BLE. PT REPORTS THAT SHE VOIDED PRIOR TO COMING TO UNIT. DECLINES NEEDING TO URINATE AT THIS TIME. NO N/V OR BM'S SINCE ARRIVAL TO UNIT. NS INFUSING PER EMAR. VSS. DENIES CHEST PAIN/PRESSURE. MD AWARE OF ELEVATED TROPONIN; NO NEW ORDERS. BED IN LOWEST POSITION AND CALL LIGHT WITHIN REACH. THIS RN WILL REPORT TO ONCOMING DAYSHIFT RN.
[2024-06-12] MEDS ORDERED: Levothyroxine Sodium 0.125 MG Tab PO SCH (06:00)
[2024-06-12] MEDS ORDERED: Pantoprazole Sodium 40 MG Tab PO SCH (06:00)
[2024-06-12 08:00] VITALS: BP 101/74
[2024-06-12] MEDS ORDERED: Ferrous Sulfate 325 MG Tab PO SCH (08:00)
[2024-06-12] MEDS ORDERED: Ascorbic Acid 500 MG Tab PO SCH (08:00)
[2024-06-12] MEDS ORDERED: Clopidogrel Bisulfate 75 MG Tab PO SCH (09:00)
[2024-06-12] MEDS ORDERED: Metoprolol Succinate 25 MG TABCR PO SCH (09:00)
[2024-06-12] MEDS ORDERED: Aspirin 81 MG Chew PO SCH (09:00)
[2024-06-12] MEDS ORDERED: Atorvastatin 40 MG Tab PO SCH (09:00)
[2024-06-12 09:26] LABS: Hematocrit 27.5 % (33.0-51.0); Mean Corpuscular HGB 26.8 pg (26.0-34.0); Mean Corpuscular HGB Conc 32.7 g/dL (31.5-36.5); Mean Corpuscular Volume 82 fL (80-100); Mean Platelet Volume 10.7 fL (9.1-12.4); NRBC ABSOLUTE 0.06 K/mm3 (0.00-0.02); NRBC Auto 1.1 /100 WBC (0.0-0.2); Platelet Count 273 K/mm3 (150-400); RDW Coefficient Variation 16.7 % (11.7-14.2); RDW Standard Deviation 49.7 fL (35.1-46.3); Red Blood Cell Count 3.36 M/mm3 (3.80-5.20); White Blood Cell Count 5.47 K/mm3 (4.00-11.30)
[2024-06-12 11:45] VITALS: BP 152/84
[2024-06-12 12:57] LABS: Hematocrit 28.9 % (33.0-51.0); Hemoglobin 9.4 g/dL (11.5-16.0); Mean Corpuscular HGB 26.9 pg (26.0-34.0); Mean Corpuscular HGB Conc 32.5 g/dL (31.5-36.5); Mean Corpuscular Volume 83 fL (80-100); Mean Platelet Volume 10.1 fL (9.1-12.4); NRBC ABSOLUTE 0.05 K/mm3 (0.00-0.02); NRBC Auto 0.8 /100 WBC (0.0-0.2); Platelet Count 276 K/mm3 (150-400); RDW Coefficient Variation 16.9 % (11.7-14.2); RDW Standard Deviation 51.2 fL (35.1-46.3)
[2024-06-12] MEDS ORDERED: METO25ER PO (15:27)
[2024-06-12] MEDS ORDERED: ASPI81CH PO (15:29)
--- NOTE | 2024-06-12 16:44 | NUR ---
DISCHARGE INSTRUCTIONS GONE THROUGH WITH PATIENT.D/C'D MEDS DISCUSSED. ALL QUESTIONS ANSWERED. PT DISCHARGED AT 1635.
== END 2024-06-12 16:36 | disposition home or self-care (01) ==
LOC: ER 15:29 → PCU 15:30
PROVIDERS: Emergency Medicine; Family Medicine; Nurse Practitioner Acute Care; ADMIT Internal Medicine
DX: D50.9 Iron deficiency anemia, unspecified (principal); K31.A19 Gastric intestinal metaplasia without dysplasia, unspecified site; I65.23 Occlusion and stenosis of bilateral carotid arteries; I73.9 Peripheral vascular disease, unspecified; K22.70 Barrett's esophagus without dysplasia; I25.10 Atherosclerotic heart disease of native coronary artery without angina pectoris; I10 Essential (primary) hypertension; E78.5 Hyperlipidemia, unspecified; E03.9 Hypothyroidism, unspecified; L40.9 Psoriasis, unspecified; F17.210 Nicotine dependence, cigarettes, uncomplicated; Z95.5 Presence of coronary angioplasty implant and graft; Z88.5 Allergy status to narcotic agent; Z87.19 Personal history of other diseases of the digestive system; Z90.49 Acquired absence of other specified parts of digestive tract
CPT/HCPCS: 36415; 36430; 80053; 82728; 83540; 83550; 84484; 85025; 85027; 85045; 86850; 86900; 86901; 86923; 93005; 93010; 93880; 99285-25; A9270; G0378; J7030; P9016

== ENCOUNTER 2024-06-25 07:26 | Inpatient (IN) | payer BC, OTHER ==
[~2024-06-25] VITALS: Ht 167.6 cm; Wt 50.2 kg
[2024-06-25] VITALS (12 sets, daily range): BP systolic 117–144; BP diastolic 62–81
[~2024-06-25 07:26] MED LIST changes: +C COMPLEX1000 M1 PO; +ELIQUIS2.5 MG PO; +FERSU300 PO; +METO25ER PO
[2024-06-25 08:18] LABS: BASOPHILS ABSOLUTE AUTO 0.06 K/mm3 (0.00-0.23); BASOPHILS PERCENT AUTO 1 % (0-2); EOSINOPHILS ABSOLUTE AUTO 0.27 K/mm3 (0.00-0.68); EOSINOPHILS PERCENT AUTO 6 % (0-6); IMMATURE GRAN ABSOLUTE AUTO 0.03 K/mm3 (0.00-0.10); IMMATURE GRAN PERCENT AUTO 1 % (0-1); LYMPHOCYTES ABSOLUTE AUTO 1.01 K/mm3 (0.84-5.20); LYMPHOCYTES PERCENT AUTO 22 % (21-46); MONOCYTES ABSOLUTE AUTO 0.39 K/mm3 (0.16-1.47); MONOCYTES PERCENT AUTO 9 % (4-13); Mean Corpuscular HGB 26.2 pg (26.0-34.0); Mean Corpuscular HGB Conc 29.9 g/dL (31.5-36.5); Mean Corpuscular Volume 88 fL (80-100); Mean Platelet Volume 10.3 fL (9.1-12.4); NEUTROPHILS ABSOLUTE AUTO 2.78 K/mm3 (1.96-9.15); NEUTROPHILS PERCENT AUTO 61 % (41-73); Platelet Count 196 K/mm3 (150-400); RDW Coefficient Variation 18.6 % (11.7-14.2); RDW Standard Deviation 59.1 fL (35.1-46.3); Red Blood Cell Count 1.64 M/mm3 (3.80-5.20); White Blood Cell Count 4.54 K/mm3 (4.00-11.30)
[2024-06-25 08:23] LABS: Hemoglobin 4.3 g/dL (11.5-16.0)
[2024-06-25 08:24] LABS: Hematocrit 14.4 % (33.0-51.0)
[2024-06-25 08:34] LABS: Albumin, Blood 3.3 g/dL (3.4-5.0); Albumin/Globulin Ratio 1.2 (0.8-1.8); Bilirubin, Total 0.4 mg/dL (0.1-1.0); Bun/Creatinine Ratio 24.5 (12.0-20.0); Calcium, Blood 8.5 mg/dL (8.5-10.1); Creatinine, Blood 0.65 mg/dL (0.40-1.00); Globulin, Blood 2.8 g/dL (2.2-4.0); Potassium, Blood 3.6 mmol/L (3.5-5.5); Total Protein, Blood 6.1 g/dL (6.4-8.2)
[2024-06-25] MEDS ORDERED: NS 1,000 ML IV SCH (10:10)
[2024-06-25] MEDS ORDERED: FLU VACC TS2024-25(6MOS UP)/PF 45 MCG/0.5 ML SYRINGE IM SCH (11:10)
[2024-06-25] MEDS ORDERED: NS 500 ML IV SCH (13:30)
--- NOTE | 2024-06-25 20:07 | NUR ---
SHIFT SUMMARY- PT ALERT AND ORIENTED, 1PA TO THE BSC. PT HAS BEDREST ORDERS. PER DR HANSON SHE CAN TRANSFER WITH STAFF ASSISTANCE TO THE BSC. PT HAS BEEN RECIEVING BLOOD SINCE HER ARRIVAL ON MED FLOOR AT 1215. SHE IS CURRENTLY TRANSFUSING HER THIRD UNIT OF PRBC. PER DR HANSON H&H SHOULD BE RECHECKED 1 HOUR POST TRANSFUSION. GI CONSULT CALLED TO DR BLACKWOOD. HE HAD PROCEDURES SCHEDULED ALL DAY, HE WILL COME SEE THE PT AFTER HIS PROCEDURES. HE ORDERED CLEAR LIQUID DIET. PASSED ALL ON IN BEDSIDE REPORT TO NIGHT RN. NO CURRENT S&S OF DISTRESS NOTED.
[2024-06-25 22:43] LABS: Hematocrit 26.8 % (33.0-51.0)
[2024-06-26 00:11] VITALS: BP 129/73
[2024-06-26] MEDS ORDERED: Pantoprazole Sodium 40 MG Injection IV SCH (01:05)
[2024-06-26 02:28] VITALS: BP 126/78
--- NOTE | 2024-06-26 04:51 | NUR ---
SHIFT SUMM: PT IS A 59 YO FULL CODE WHO WAS ADMITTED FOR GI BLEED. PT FINISHED HER THIRD UNIT OF BLOOD THIS SHIFT AND HEMOGLOBIN HAS IMPROVED. PT HAD A CONSULT THIS EVENING WITH DR GONZALEZ AND WILL HAVE AN UPPER AND LOWER SCOPE DONE TODAY. PT IS ON A CLEAR LIQUID DIET. PT IS A SBA FOR HIST OF FALLS. PT IS ON TELE W/SNR IN THE 80'S. PT MAKES NEEDS KNOWN AND HAS CALL LIGHT CLOSE
[2024-06-26] MEDS ORDERED: Levothyroxine Sodium 0.125 MG Tab PO SCH (06:00)
[2024-06-26 06:14] LABS: BASOPHILS PERCENT AUTO 2 % (0-2); EOSINOPHILS ABSOLUTE AUTO 0.34 K/mm3 (0.00-0.68); EOSINOPHILS PERCENT AUTO 8 % (0-6); Hematocrit 27.1 % (33.0-51.0); Hemoglobin 8.9 g/dL (11.5-16.0); IMMATURE GRAN ABSOLUTE AUTO 0.01 K/mm3 (0.00-0.10); IMMATURE GRAN PERCENT AUTO 0 % (0-1); LYMPHOCYTES ABSOLUTE AUTO 1.06 K/mm3 (0.84-5.20); LYMPHOCYTES PERCENT AUTO 24 % (21-46); MONOCYTES ABSOLUTE AUTO 0.39 K/mm3 (0.16-1.47); MONOCYTES PERCENT AUTO 9 % (4-13); Mean Corpuscular HGB 27.9 pg (26.0-34.0); Mean Corpuscular HGB Conc 32.8 g/dL (31.5-36.5); Mean Corpuscular Volume 85 fL (80-100); Mean Platelet Volume 10.5 fL (9.1-12.4); NEUTROPHILS ABSOLUTE AUTO 2.54 K/mm3 (1.96-9.15); NEUTROPHILS PERCENT AUTO 57 % (41-73); Platelet Count 169 K/mm3 (150-400); RDW Coefficient Variation 15.7 % (11.7-14.2); Red Blood Cell Count 3.19 M/mm3 (3.80-5.20); White Blood Cell Count 4.44 K/mm3 (4.00-11.30)
[2024-06-26 06:50] LABS: Albumin, Blood 2.9 g/dL (3.4-5.0); Albumin/Globulin Ratio 1.2 (0.8-1.8); Bilirubin, Total 0.8 mg/dL (0.1-1.0); Bun/Creatinine Ratio 14.1 (12.0-20.0); Calcium, Blood 8.5 mg/dL (8.5-10.1); Creatinine, Blood 0.71 mg/dL (0.40-1.00); Globulin, Blood 2.5 g/dL (2.2-4.0); Potassium, Blood 3.7 mmol/L (3.5-5.5); Total Protein, Blood 5.4 g/dL (6.4-8.2)
[2024-06-26 07:52] VITALS: BP 121/75
--- NOTE | 2024-06-26 08:05 | NUR ---
ASSUMED CARE OF PATIENT. AWAKE AND SITTING AT SIDE-OF-BED. NO ACUTE NEEDS.
[2024-06-26] MEDS ORDERED: Nicotine 21 MG PATCH TOP SCH (09:00)
[2024-06-26] MEDS ORDERED: Ferrous Sulfate 325 MG Tab PO SCH (09:00)
[2024-06-26] MEDS ORDERED: Cholecalciferol 1000 Unit Tablet (=25MCG) PO SCH (09:00)
[2024-06-26] MEDS ORDERED: Cyanocobalamin 500 MCG Tab PO SCH (09:00)
[2024-06-26] MEDS ORDERED: Ascorbic Acid 500 MG Tab PO SCH (09:00)
[2024-06-26] MEDS ORDERED: Metoprolol Succinate 25 MG TABCR PO SCH (09:00)
[2024-06-26 11:43] VITALS: BP 128/77
[2024-06-26] MEDS ORDERED: Folic Acid 1 MG TAB PO SCH (14:00)
[2024-06-26 15:58] VITALS: BP 123/63
[2024-06-26] MEDS ORDERED: Peg/Electrolytes 4,000 ML BTL PO ONE (17:00)
--- NOTE | 2024-06-26 18:19 | NUR ---
END OF SHIFT SUMMARY: A&Ox4. PLEASANT AND COOPERATIVE WITH CARE. CALLS APPROPRIATELY AND IS ABLE TO ADVOCATE NEEDS EFFECTIVELY. INDEPENDENT c AMBULATION. CONTINENT OF BOWEL AND BLADDER. LBM 06/22. MEDS WHOLE c FLUIDS. NO C/O PAIN OR DISCOMFORT. TELE NSR. UNABLE TO SCOPE TODAY. ORDERS FOR PREP RECEIVED. GOLYTELY STARTED AT 1700; 1/2 NOW AND 1/2 AT 0500. BED IN LOWEST POSITION, CALL LIGHT WITHIN REACH, ALL NEEDS MET. REPORT TO ONCOMING NURSE.
[2024-06-26 20:06] VITALS: BP 140/71
[2024-06-26] MEDS ORDERED: Atorvastatin 40 MG Tab PO SCH (21:00)
[2024-06-27] VITALS (8 sets, daily range): BP systolic 87–150; BP diastolic 52–89
--- NOTE | 2024-06-27 00:59 | NUR ---
NPO EXCEPT SIPS OF WATER AND ICE CHIPS FOR GI PROCEDURE LATER TODAY. CALL LIGHT IN REACH.
--- NOTE | 2024-06-27 03:10 | NUR ---
SOFTWARE BUILD ENGINEER SUMMARY VSS. ALERT AND ORIENTED. COOPERATIVE WITH CARE. UP AD MARGO, DENIED BLOODY EMESIS AND BLOODY STOOL. TOLERATING GO LYTELY BEFORE HS AND THEN WAS NPO WITH SIPS OF WATER AND ICE CHIPS UNTIL 0500 AM AND TO DRINK MORE GO LYTELY FOR PREPARATION FOR GI PROCEDURE LATER TODAY. HAS BEEN RESTING QUIETLY WITH FEW INTERRUPTIONS. CALL LIGHT IN REACH, RAILS UP X 2 AND BED IN LOW POSITION FOR SAFETY. WILL CONTINUE TO MONITOR
[2024-06-27] MEDS ORDERED: Peg/Electrolytes 4,000 ML BTL PO ONE (05:00)
[2024-06-27 05:40] LABS: BASOPHILS ABSOLUTE AUTO 0.09 K/mm3 (0.00-0.23); BASOPHILS PERCENT AUTO 2 % (0-2); EOSINOPHILS ABSOLUTE AUTO 0.35 K/mm3 (0.00-0.68); EOSINOPHILS PERCENT AUTO 8 % (0-6); Hematocrit 30.6 % (33.0-51.0); Hemoglobin 9.8 g/dL (11.5-16.0); IMMATURE GRAN ABSOLUTE AUTO 0.01 K/mm3 (0.00-0.10); IMMATURE GRAN PERCENT AUTO 0 % (0-1); LYMPHOCYTES ABSOLUTE AUTO 1.21 K/mm3 (0.84-5.20); LYMPHOCYTES PERCENT AUTO 27 % (21-46); MONOCYTES ABSOLUTE AUTO 0.36 K/mm3 (0.16-1.47); MONOCYTES PERCENT AUTO 8 % (4-13); Mean Corpuscular HGB 28.2 pg (26.0-34.0); Mean Corpuscular Volume 88 fL (80-100); Mean Platelet Volume 10.3 fL (9.1-12.4); NEUTROPHILS ABSOLUTE AUTO 2.48 K/mm3 (1.96-9.15); NEUTROPHILS PERCENT AUTO 55 % (41-73); Platelet Count 185 K/mm3 (150-400); RDW Coefficient Variation 15.6 % (11.7-14.2); RDW Standard Deviation 49.2 fL (35.1-46.3); Red Blood Cell Count 3.47 M/mm3 (3.80-5.20)
[2024-06-27 06:39] LABS: Bun/Creatinine Ratio 9.1 (12.0-20.0); Calcium, Blood 8.8 mg/dL (8.5-10.1); Creatinine, Blood 0.77 mg/dL (0.40-1.00); Potassium, Blood 3.6 mmol/L (3.5-5.5)
[2024-06-27] MEDS ORDERED: Lactated Ringer's 1,000 ML IV SCH (14:10)
--- NOTE | 2024-06-27 14:15 | NUR ---
PT TRANSFERED TO DAY SURGERY FOR UPPER AND LOWER SCOPE.
--- NOTE | 2024-06-27 14:40 | NUR ---
06/27/24 1440 Darrell Rosas History, Chart, Medications and Allergies reviewed before start of procedure.MONITOR INTACT WITH CONTINUOUS PULSE OXIMETRY, CONTINUOUS END TITAL CO2, 3-LEAD EKG AND INTERMITTENT BLOOD PRESSURE.3-LEAD EKG REVIEWED WITH PHYSICIAN PRIOR TO START OF PROCEDURE.O2 VIA POM INTACT THROUGHOUT SEDATION/PROCEDURE.See Anesthesia record.
[2024-06-27] MEDS ORDERED: propofoL 40 ML IV ONE ×3 (14:44→15:30)
[2024-06-27] MEDS ORDERED: propofoL 20 ML IV ONE (15:49)
--- NOTE | 2024-06-27 16:33 | NUR ---
PT BACK FROM PACU. BEDSIDE REPORT RECIEVED. POST-OP VITAL INITIATED.
[2024-06-27] MEDS ORDERED: FOLI1 PO (18:04)
[2024-06-27] MEDS ORDERED: ELIQUIS5 M2 PO (18:04)
--- NOTE | 2024-06-27 18:47 | NUR ---
PT DISCHARGED TO HOME WITH SISTER. DISCHARGE INSTRUCTIONS PROVIDED AND EDUCATED ON AT TIME OF DISCHARGE. ALL VALUALBES RETURNED AND SENT HOME WITH THE PT.
[2024-06-28] MEDS ORDERED: Pantoprazole Sodium 40 MG Tab PO SCH (06:00)
== END 2024-06-27 18:34 | disposition home or self-care (01) | DRG 811 ==
LOC: ER 07:26 → MEDS 11:10
PROVIDERS: Emergency Medicine; Internal Medicine; Internal Medicine Gastroenterology; ADMIT Family Medicine
PROC: 30233N1 Transfusion of Nonautologous Red Blood Cells into Peripheral Vein, Percutaneous Approach (ICD-10-PCS; principal; 2024-06-25)
PROC: 0D998ZX Drainage of Duodenum, Via Natural or Artificial Opening Endoscopic, Diagnostic (ICD-10-PCS; 2024-06-27)
PROC: 0DJD8ZZ Inspection of Lower Intestinal Tract, Via Natural or Artificial Opening Endoscopic (ICD-10-PCS; 2024-06-27)
PROC: 0W3P8ZZ Control Bleeding in Gastrointestinal Tract, Via Natural or Artificial Opening Endoscopic (ICD-10-PCS; 2024-06-27 11:45)
DX: D62 Acute posthemorrhagic anemia (principal); K55.21 Angiodysplasia of colon with hemorrhage; K22.70 Barrett's esophagus without dysplasia; I25.10 Atherosclerotic heart disease of native coronary artery without angina pectoris; K21.9 Gastro-esophageal reflux disease without esophagitis; I10 Essential (primary) hypertension; E03.9 Hypothyroidism, unspecified; L40.9 Psoriasis, unspecified; E78.5 Hyperlipidemia, unspecified; I73.9 Peripheral vascular disease, unspecified; F17.200 Nicotine dependence, unspecified, uncomplicated; I65.23 Occlusion and stenosis of bilateral carotid arteries; I27.20 Pulmonary hypertension, unspecified; K57.30 Diverticulosis of large intestine without perforation or abscess without bleeding; K64.8 Other hemorrhoids; F10.90 Alcohol use, unspecified, uncomplicated; Z88.5 Allergy status to narcotic agent; Z79.890 Hormone replacement therapy; Z79.82 Long term (current) use of aspirin; Z79.02 Long term (current) use of antithrombotics/antiplatelets; Z79.01 Long term (current) use of anticoagulants; Z95.820 Peripheral vascular angioplasty status with implants and grafts; Z95.5 Presence of coronary angioplasty implant and graft
CPT/HCPCS: 36415; 36430; 80048; 80053; 82746; 85014; 85018; 85025; 86850; 86900; 86901; 86923; 93005; 93010; 99285-25; A9270; J2470; J2704; J7030; J7040; J7120; P9016

== ENCOUNTER 2024-07-23 15:30 | Observation (INO) | payer BC, OTHER ==
[~2024-07-23] VITALS: Ht 167.6 cm; Wt 55.7 kg
[~2024-07-23 15:30] MED LIST changes: +ELIQUIS5 M2 PO
[2024-07-23 16:20] LABS: BASOPHILS ABSOLUTE AUTO 0.09 K/mm3 (0.00-0.23); BASOPHILS PERCENT AUTO 1 % (0-2); EOSINOPHILS ABSOLUTE AUTO 0.33 K/mm3 (0.00-0.68); EOSINOPHILS PERCENT AUTO 5 % (0-6); Hematocrit 19.2 % (33.0-51.0); IMMATURE GRAN ABSOLUTE AUTO 0.02 K/mm3 (0.00-0.10); IMMATURE GRAN PERCENT AUTO 0 % (0-1); LYMPHOCYTES ABSOLUTE AUTO 1.31 K/mm3 (0.84-5.20); LYMPHOCYTES PERCENT AUTO 21 % (21-46); MONOCYTES ABSOLUTE AUTO 0.54 K/mm3 (0.16-1.47); MONOCYTES PERCENT AUTO 9 % (4-13); Mean Corpuscular HGB 25.5 pg (26.0-34.0); Mean Corpuscular HGB Conc 29.2 g/dL (31.5-36.5); Mean Corpuscular Volume 87 fL (80-100); Mean Platelet Volume 11.1 fL (9.1-12.4); NEUTROPHILS PERCENT AUTO 64 % (41-73); Platelet Count 234 K/mm3 (150-400); RDW Coefficient Variation 18.5 % (11.7-14.2); RDW Standard Deviation 58.7 fL (35.1-46.3); White Blood Cell Count 6.39 K/mm3 (4.00-11.30)
[2024-07-23 16:25] LABS: Hemoglobin 5.6 g/dL (11.5-16.0)
[2024-07-23] MEDS ORDERED: Pantoprazole Sodium 40 MG Injection IV ONE (16:40)
[2024-07-23 16:46] LABS: Albumin, Blood 3.7 g/dL (3.4-5.0); Albumin/Globulin Ratio 1.1 (0.8-1.8); Bilirubin, Total 0.3 mg/dL (0.1-1.0); Bun/Creatinine Ratio 15.7 (12.0-20.0); Creatinine, Blood 0.89 mg/dL (0.40-1.00); Globulin, Blood 3.5 g/dL (2.2-4.0); Potassium, Blood 3.8 mmol/L (3.5-5.5); Total Protein, Blood 7.2 g/dL (6.4-8.2)
[2024-07-23] MEDS ORDERED: NS 1,000 ML IV ONE (17:33)
[2024-07-23 17:50] LABS: International Normalized Ratio 1.02; Prothrombin Time Results 10.9 Sec (9.7-11.5)
[2024-07-23] MEDS ORDERED: NS 1,000 ML IV SCH (17:50)
[2024-07-23 19:51] LABS: IMMATURE RETIC FRACTION 9.6 % (2.3-16.0); RETIC HGB EQUIVALENT 16.8 pg (28.20-36.60); RETICULOCYTE ABSOLUTE 0.0592 M/mm3 (0.0200-0.1100); RETICULOCYTE COUNT PERCENT 2.73 % (0.50-2.50)
[2024-07-23] MEDS ORDERED: FLU VACC TS2024-25(6MOS UP)/PF 45 MCG/0.5 ML SYRINGE IM ONE (20:20)
[2024-07-23] MEDS ORDERED: Ondansetron HCl 2 MG / ML 2ML Vial IV PRN (20:20)
[2024-07-23] MEDS ORDERED: Apixaban 5 MG Tab PO SCH (21:00)
[2024-07-23] MEDS ORDERED: Atorvastatin 40 MG Tab PO SCH (21:00)
[2024-07-23 21:06] LABS: Percent Saturation 2.9 % (15.0-50.0)
[2024-07-23 21:46] VITALS: BP 142/79
[2024-07-24 00:39] LABS: Hematocrit 26.1 % (33.0-51.0); Hemoglobin 8.4 g/dL (11.5-16.0)
[2024-07-24 05:21] LABS: Hematocrit 25.5 % (33.0-51.0); Hemoglobin 8.1 g/dL (11.5-16.0)
[2024-07-24 05:41] VITALS: BP 123/62
[2024-07-24 05:45] LABS: Bun/Creatinine Ratio 16.7 (12.0-20.0); Calcium, Blood 8.5 mg/dL (8.5-10.1); Creatinine, Blood 0.78 mg/dL (0.40-1.00); Potassium, Blood 3.8 mmol/L (3.5-5.5)
[2024-07-24] MEDS ORDERED: Pantoprazole Sodium 40 MG Tab PO SCH (06:00)
[2024-07-24] MEDS ORDERED: Levothyroxine Sodium 0.125 MG Tab PO SCH (06:00)
[2024-07-24 07:58] VITALS: BP 116/55
[2024-07-24] MEDS ORDERED: Lactated Ringer's 1,000 ML IV SCH (08:20)
[2024-07-24] MEDS ORDERED: propofoL 40 ML IV ONE ×2 (08:30→09:22)
[2024-07-24 08:43] VITALS: BP 105/72
[2024-07-24] MEDS ORDERED: Phenylephrine HCl 10mg/ml 1 ml Vial ONE (08:49)
--- NOTE | 2024-07-24 08:55 | NUR ---
History, Chart, Medications and Allergies reviewed before start of procedure. Patient confirms NPO status and agrees with scheduled surgery. Pre-Op teaching done. Pt verbalizes understanding. Lungs clear T/O to Auscultation.
[2024-07-24] MEDS ORDERED: NS 100 ML IV ONE (08:58)
[2024-07-24] MEDS ORDERED: Metoprolol Succinate 25 MG TABCR PO SCH (09:00)
[2024-07-24] MEDS ORDERED: Clopidogrel Bisulfate 75 MG Tab PO SCH (09:00)
[2024-07-24] MEDS ORDERED: Ascorbic Acid 500 MG Tab PO SCH (09:00)
[2024-07-24] MEDS ORDERED: Ferrous Sulfate 325 MG Tab PO SCH (09:00)
--- NOTE | 2024-07-24 09:06 | NUR ---
07/24/24 0906 Clare Sarmiento MONITOR INTACT WITH CONTINUOUS PULSE OXIMETRY, CONTINUOUS END TITAL CO2, 3-LEAD EKG AND INTERMITTENT BLOOD PRESSURE. History, Chart, Medications and Allergies reviewed before start of procedure. See Anesthesia record WITH DR. RIBERA
[2024-07-24 10:21] VITALS: BP 76/55
[2024-07-24 10:47] VITALS: BP 80/56
[2024-07-24 11:31] VITALS: BP 94/52
--- NOTE | 2024-07-24 14:21 | NUR ---
DC SUMMARY PT DC THIS SHIFT. DC INSTRUCTION GONE OVER WITH PT WHOM STATED UNDERSTANDING. PT ESCORTED OUT TO PRIVATE VEHICLE VIA WHEELCHAIR BY BULK STATION OPERATOR.
== END 2024-07-24 14:30 | disposition home or self-care (01) ==
LOC: ER 15:30 → MEDS 15:31
PROVIDERS: Emergency Medicine; Internal Medicine Gastroenterology; Nurse Practitioner Acute Care; Physician Assistant; ADMIT Internal Medicine
PROC: 0W3P8ZZ Control Bleeding in Gastrointestinal Tract, Via Natural or Artificial Opening Endoscopic (ICD-10-PCS; principal; 2024-07-24 09:00)
DX: D62 Acute posthemorrhagic anemia (principal); K55.8 Other vascular disorders of intestine; I48.0 Paroxysmal atrial fibrillation; I10 Essential (primary) hypertension; I25.10 Atherosclerotic heart disease of native coronary artery without angina pectoris; E78.5 Hyperlipidemia, unspecified; E03.9 Hypothyroidism, unspecified; F10.10 Alcohol abuse, uncomplicated; F17.210 Nicotine dependence, cigarettes, uncomplicated; Z95.5 Presence of coronary angioplasty implant and graft; Z88.5 Allergy status to narcotic agent; Z79.01 Long term (current) use of anticoagulants; Z79.890 Hormone replacement therapy; Z79.02 Long term (current) use of antithrombotics/antiplatelets; Z79.899 Other long term (current) drug therapy
CPT/HCPCS: 36415; 36430; 80048; 80053; 80320; 82607; 82728; 82746; 83540; 83550; 85014; 85018; 85025; 85045; 85610; 85730; 86850; 86900; 86901; 86923; 93005; 93010; 96374; 99285-25; A9270; G0378; J2371; J2470; J2704; J7030; J7120; P9016

== ENCOUNTER 2024-08-08 16:25 | Inpatient (IN) | payer BC, OTHER ==
[~2024-08-08] VITALS: Ht 167.6 cm; Wt 53.0 kg
[2024-08-08] VITALS (9 sets, daily range): BP systolic 85–123; BP diastolic 57–97
[2024-08-08 16:47] LABS: BASOPHILS ABSOLUTE AUTO 0.03 K/mm3 (0.00-0.23); BASOPHILS PERCENT AUTO 1 % (0-2); EOSINOPHILS ABSOLUTE AUTO 0.18 K/mm3 (0.00-0.68); EOSINOPHILS PERCENT AUTO 3 % (0-6); IMMATURE GRAN ABSOLUTE AUTO 0.03 K/mm3 (0.00-0.10); IMMATURE GRAN PERCENT AUTO 1 % (0-1); LYMPHOCYTES ABSOLUTE AUTO 0.96 K/mm3 (0.84-5.20); LYMPHOCYTES PERCENT AUTO 17 % (21-46); MONOCYTES ABSOLUTE AUTO 0.38 K/mm3 (0.16-1.47); MONOCYTES PERCENT AUTO 7 % (4-13); Mean Corpuscular HGB 26.7 pg (26.0-34.0); Mean Corpuscular HGB Conc 27.9 g/dL (31.5-36.5); Mean Corpuscular Volume 96 fL (80-100); Mean Platelet Volume 10.9 fL (9.1-12.4); NEUTROPHILS PERCENT AUTO 72 % (41-73); NRBC ABSOLUTE 0.02 K/mm3 (0.00-0.02); NRBC Auto 0.4 /100 WBC (0.0-0.2); Platelet Count 213 K/mm3 (150-400); RDW Coefficient Variation 23.7 % (11.7-14.2); Red Blood Cell Count 1.61 M/mm3 (3.80-5.20); White Blood Cell Count 5.58 K/mm3 (4.00-11.30)
[2024-08-08 16:49] LABS: Hematocrit 15.4 % (33.0-51.0); Hemoglobin 4.3 g/dL (11.5-16.0)
[2024-08-08 17:04] LABS: Albumin, Blood 3.3 g/dL (3.4-5.0); Albumin/Globulin Ratio 1.3 (0.8-1.8); Bilirubin, Total 0.3 mg/dL (0.1-1.0); Bun/Creatinine Ratio 27.2 (12.0-20.0); Calcium, Blood 8.4 mg/dL (8.5-10.1); Creatinine, Blood 0.59 mg/dL (0.40-1.00); Globulin, Blood 2.5 g/dL (2.2-4.0); Potassium, Blood 3.3 mmol/L (3.5-5.5); Total Protein, Blood 5.8 g/dL (6.4-8.2)
[2024-08-08] MEDS ORDERED: HYDROmorphone HCl/Pf 1MG SYR IV ONE ×2 (18:05→19:05)
[2024-08-08] MEDS ORDERED: NS 1,000 ML IV SCH ×2 (18:05→21:00)
[2024-08-08 19:06] LABS: International Normalized Ratio 1.07; Prothrombin Time Results 11.4 Sec (9.7-11.5)
[2024-08-08] MEDS ORDERED: Pantoprazole Sodium 40 MG Injection IV ONE (19:35)
[2024-08-08] MEDS ORDERED: Human Prothrombin Complx(Pcc) 2,000 UNIT in Water For Injection,Sterile 80 ML IV ONE (19:35)
[2024-08-08] MEDS ORDERED: Ondansetron HCl 2 MG / ML 2ML Vial IV PRN (20:55)
[2024-08-08] MEDS ORDERED: FentaNYL Citrate 50 MCG/ML 2 ML Injection IV PRN (20:55)
[2024-08-08] MEDS ORDERED: Acetaminophen650 M1 (21:47)
--- NOTE | 2024-08-08 23:06 | NUR ---
ARRIVAL TO ICU: PT ARRIVED TO ICU 11 AT 2130 VIA GURNEY FROM ER. REPORT RECIEVED FROM ANTHONY. PT ABLE TO STAND AND TRANSFER TO ICU BED W/LINE MGMT.PT A&OX4 FOLLOWS DIRECTIONS AND MAKES NEEDS KNOWN. ON RA W/SPO2 MID 90'S AND ENDORSES SOB W/ACTIVITY. PT ON FOREIGN LANGUAGE INTERPRETER AND AFIB W/HR IN THE 80'S.SBP SOFT BUT MAPS MAINTAIN GREATER THAN 65. DENIES CP AND 1 UNIT PRBC'S INFUSING UPON ARRIVAL. NS STARTED AT 75ML/HR.PIV TO LAC AND RAC BOTH PATENT. PT TOLERATING ICE CHIPS AND N/C OF NAUSEA AND VOMITING. PT MOVING IND IN BED. CALL LIGHT WITHIN REACH.
--- NOTE | 2024-08-08 23:49 | NUR ---
ASSUMED CARE OF PT WITH NATHALIE ALVAREZ SURTASS ANALYST. ASSESSMENT COMPLETED TOGETHER AND DOCUMENTED TOGETHER.
[2024-08-09] VITALS (43 sets, daily range): BP systolic 86–123; BP diastolic 51–97
[2024-08-09 00:01] LABS: Hematocrit 32.8 % (33.0-51.0); Hemoglobin 10.4 g/dL (11.5-16.0)
[2024-08-09 03:19] LABS: Hematocrit 32.3 % (33.0-51.0); Hemoglobin 10.2 g/dL (11.5-16.0)
[2024-08-09 03:41] LABS: Magnesium, Blood 1.8 mg/dL (1.6-2.4)
[2024-08-09 03:43] LABS: Albumin, Blood 3.2 g/dL (3.4-5.0); Albumin/Globulin Ratio 1.2 (0.8-1.8); Bilirubin, Total 0.9 mg/dL (0.1-1.0); Bun/Creatinine Ratio 17.7 (12.0-20.0); Calcium, Blood 8.1 mg/dL (8.5-10.1); Creatinine, Blood 0.68 mg/dL (0.40-1.00); Globulin, Blood 2.6 g/dL (2.2-4.0); Potassium, Blood 3.8 mmol/L (3.5-5.5); Total Protein, Blood 5.8 g/dL (6.4-8.2)
[2024-08-09 03:51] LABS: International Normalized Ratio 0.97; Prothrombin Time Results 10.4 Sec (9.7-11.5)
[2024-08-09] MEDS ORDERED: Acetaminophen 325 MG TABLET PO PRN (04:40)
--- NOTE | 2024-08-09 05:56 | NUR ---
SHIFT SUMM: NO ACUTE CHANGES SINCE ARRIVAL TO ICU.REMAINS A&OX4. CONTINUES ON RA W/SPO2 HIGH 90'S.NO COMPLAINTS OF SOB.PT CONVERTED FROM A-FIB TO SR W/HR IN THE 80'S.SBP 80'S-90'S WITH MAP GREATER THAN 65. PT NO LONGER COMPLAINING OF CP THIS AM. ABLE TO AMBULATE TO THE COMMODE W/LINE ASSIST.VOIDING YELLOW URINE.NS INFUSING AT 75ML/HR.LAC AND RAC IV BOTH PATENT.TOLERATING WATER AND ICE CHIPS. NO COMPLAINTS OF NAUSEA OR VOMITING.PT TO BE NPO AT 10AM FOR PLANNED EGD.CALL LIGHT IN REACH.
[2024-08-09] MEDS ORDERED: Levothyroxine Sodium 0.125 MG Tab PO SCH (06:00)
[2024-08-09] MEDS ORDERED: Pantoprazole Sodium 40 MG Injection IV SCH (06:00)
[2024-08-09] MEDS ORDERED: Atorvastatin 40 MG Tab PO SCH (09:00)
--- NOTE | 2024-08-09 09:26 | NUR ---
START OF SHIFT THIS NURSE ASSUMED CARE AT APPROXIMATELY 0700. PT DENIES ANY DISCOMORT OR CHEST PAIN AT TIME OF ASSESSMENT. NS MAINTENENCE FLUIDS INFUSING AT 75ML/HR. WILL CONTINUE WITH THE PLAN OF CARE.
--- NOTE | 2024-08-09 13:12 | NUR ---
Upon receiving a referral for spiritual care, I visited the patient. She is lying in bed and alert. She tells me about her medical issues and the plan of care moving forward. She shares about her solid family, friend and pet support and her own mental/emotional coping skills that help her move through challenges with a sense of inner strength. I normalized her experience, reinforce helpful attitudes and practices and provided therapeutic listening and a calming presence. The patient responded well and showed signs of an elevated mood.
[2024-08-09] MEDS ORDERED: Lactated Ringer's 1,000 ML IV SCH (14:00)
--- NOTE | 2024-08-09 14:10 | NUR ---
UPPER GI SCOPE PT LEFT BY WHEELCHAIR TO GET AN UPPER GI SCOPE AT APPROXIMATELY 1400. THE NURSE STATED PT WILL BE ON TELEMETRY DURING PROCEDURE.
[2024-08-09] MEDS ORDERED: propofoL 40 ML IV ONE (15:24)
--- NOTE | 2024-08-09 15:56 | NUR ---
08/09/24 1556 Tiara Gutiérrez CASE WITH DR. WASHINGTON; SEE ANESTHESIA RECORDS.
[2024-08-09] MEDS ORDERED: propofoL 20 ML IV ONE (16:10)
--- NOTE | 2024-08-09 16:43 | NUR ---
EGD PT ARRIVED BACK TO ICU AT APPROXIMATELY 1635. PT REPORTS NO PAIN AND SLIGHT SOB. PT O2 88-90%. PT PLACED ON 1L NC. NO OTHER EVENTS OR CONCERNS AT THIS TIME. WILL CONTINUE WITH THE PLAN OF CARE.
--- NOTE | 2024-08-09 19:02 | NUR ---
ANTICOAGS TLAANG AWARE PT HAS ANTICOAGS ORDERED FOR HOME CARDIAC MEDS. PT IS NOT TAKING MEDS HERE. STATED SHE IS AWARE AND WILL ADDRESS BEFORE DC HOME.
[2024-08-10 03:35] LABS: Hematocrit 29.1 % (33.0-51.0); Hemoglobin 9.3 g/dL (11.5-16.0); Mean Corpuscular HGB 28.4 pg (26.0-34.0); Mean Platelet Volume 10.5 fL (9.1-12.4); Platelet Count 215 K/mm3 (150-400); RDW Coefficient Variation 17.8 % (11.7-14.2); RDW Standard Deviation 56.5 fL (35.1-46.3); Red Blood Cell Count 3.27 M/mm3 (3.80-5.20); White Blood Cell Count 10.01 K/mm3 (4.00-11.30)
[2024-08-10 03:40] LABS: Mean Corpuscular Volume 89 fL (80-100)
[2024-08-10] MEDS ORDERED: Pantoprazole Sodium 40 MG Tab PO SCH ×2 (06:00)
--- NOTE | 2024-08-10 06:05 | NUR ---
END OF SHIFT: PT HAS BEEN RESTING IN ROOM FOR MOST OF THE NIGHT AND IS HOPEFUL TO GOING HOME TODAY. NO ACUTE EVENTS OCCURRED. HR HAS BEEN IN HIGH 90s ON TELE AND BP WNL. PT HAS BEEN ON RA AND SATTING 90% AND ABOVE.
[2024-08-10 07:13] VITALS: BP 105/68
[2024-08-10 10:03] VITALS: BP 105/73
== END 2024-08-10 10:30 | disposition home or self-care (01) | DRG 811 ==
LOC: ER 16:25 → ERHOLD 20:23 → ICUE 20:23
PROVIDERS: Emergency Medicine; Internal Medicine; Nurse Practitioner Acute Care; Student in an Organized Health Care Education/Training Program; ADMIT Internal Medicine
PROC: 30233N1 Transfusion of Nonautologous Red Blood Cells into Peripheral Vein, Percutaneous Approach (ICD-10-PCS; principal; 2024-08-08)
PROC: 0DJ08ZZ Inspection of Upper Intestinal Tract, Via Natural or Artificial Opening Endoscopic (ICD-10-PCS; 2024-08-09)
DX: D62 Acute posthemorrhagic anemia (principal); I21.A1 Myocardial infarction type 2; K55.21 Angiodysplasia of colon with hemorrhage; R57.1 Hypovolemic shock; R57.8 Other shock; E87.6 Hypokalemia; I48.0 Paroxysmal atrial fibrillation; I27.20 Pulmonary hypertension, unspecified; K22.70 Barrett's esophagus without dysplasia; I25.10 Atherosclerotic heart disease of native coronary artery without angina pectoris; K21.9 Gastro-esophageal reflux disease without esophagitis; F10.10 Alcohol abuse, uncomplicated; I10 Essential (primary) hypertension; F17.210 Nicotine dependence, cigarettes, uncomplicated; E78.5 Hyperlipidemia, unspecified; E03.9 Hypothyroidism, unspecified; I73.9 Peripheral vascular disease, unspecified; D63.8 Anemia in other chronic diseases classified elsewhere; L40.9 Psoriasis, unspecified; Z87.19 Personal history of other diseases of the digestive system; Z90.49 Acquired absence of other specified parts of digestive tract; Z95.5 Presence of coronary angioplasty implant and graft; Z79.01 Long term (current) use of anticoagulants; Z79.02 Long term (current) use of antithrombotics/antiplatelets; Z88.5 Allergy status to narcotic agent; Z79.890 Hormone replacement therapy; Z79.899 Other long term (current) drug therapy; Z95.820 Peripheral vascular angioplasty status with implants and grafts
CPT/HCPCS: 36415; 36430; 71275; 74175; 80053; 83735; 84484; 85014; 85018; 85025; 85027; 85610; 86850; 86900; 86901; 86923; 93005; 93010; 96361-59; 96374-59; 96375-59; 96376-59; 99285-25; A9270; J1171; J2470; J2704; J7030; J7120; J7168; P9016; Q9967